=== PATIENT | female | born 1995 | race Caucasian/White ===

== ENCOUNTER 2017-09-28 15:32 | Emergency (ER) | payer BC ==
[~2017-09-28] VITALS: Ht 170.2 cm; Wt 62.3 kg
[2017-09-28] MEDS ORDERED: EFFEXOR 50M50 MG/TAB PO (16:26)
[2017-09-28] MEDS ORDERED: VYVANSE40 MG PO (16:26)
[2017-09-28 16:28] LABS: BASO % 0.2 % (0.0-2.0); GRAN % 94.4 % (42.2-75.2); HEMATOCRIT 39.5 % (35.0-45.0); HEMOGLOBIN 13.5 g/dl (12.0-15.0); LYMPH # 0.4 (1.2-3.4); LYMPH % 2.1 % (20.0-51.0); MEAN CELL VOLUME 91 fl (80.0-95.0); MEAN CORPUSCULAR HEMOGLOBIN 31 pg (26.0-32.0); MEAN CORPUSCULAR HGB CONC 34 g/dl (33.0-37.0); MEAN PLATELET VOLUME 10.3 fl (7.4-10.4); MONO # 0.6 (0.1-0.6); MONO % 2.8 % (1.7-9.3); PLATELET COUNT 155 K/mm3 (130-400); RED BLOOD COUNT 4.36 M/mm3 (4.10-5.30); REDCELL DISTRIBUTION WIDTH-CV 13.4 % (11.5-14.5)
[2017-09-28] MEDS ORDERED: VYVANSE20 MG PO (16:29)
[2017-09-28] MEDS ORDERED: birth control (16:29)
[2017-09-28 17:30] LABS: COLLECTION METHOD CLEAN CATCH
[2017-09-28 17:39] LABS: MUCOUS Present /lpf; PH 5 (5-8); SQUAMOUS EPITHELIAL 0-2 /hpf; URINE APPEARANCE Cloudy; URINE BACTERIA None Seen /hpf; URINE BILIRUBIN Negative (NEGATIVE); URINE BLOOD Negative (NEGATIVE); URINE COLOR Yellow; URINE GLUCOSE Negative (NEGATIVE); URINE KETONE Negative (NEGATIVE); URINE LEUKOCYTE ESTERASE Negative (NEGATIVE); URINE NITRATE Negative (NEGATIVE); URINE PROTEIN(semi-quant) 2+ (NEGATIVE); URINE UROBILINOGEN Negative (NEGATIVE)
[2017-09-28] MEDS ORDERED: BACTRIM DS 8001 TAB PO (18:54)
[2017-09-28 19:00] VITALS: TEMP 100.4
[2017-09-28] MEDS ORDERED: NORCO 325 MG-51 TAB PO (19:10)
[2017-09-28 19:21] VITALS: BP 100/57; PULSE 98
== END 2017-09-28 19:23 | disposition home or self-care (01) ==
LOC: COL.ER 15:32
PROVIDERS: Physician Assistant
DX: N61.0 Mastitis without abscess (principal); R07.9 Chest pain, unspecified; F90.9 Attention-deficit hyperactivity disorder, unspecified type; F17.210 Nicotine dependence, cigarettes, uncomplicated
CPT/HCPCS: J2270; J2405; J7030; J7050; Q9967

== ENCOUNTER → 2017-09-28 | Outpatient (CLI) | payer BC ==
[~2017-09-28] MED LIST: BACTRIM DS 8001 TAB PO; EFFEXOR 50M50 MG/TAB PO; NORCO 325 MG-51 TAB PO; VYVANSE20 MG PO; VYVANSE40 MG PO; birth control
[2017-09-28 12:46] LABS: HEMATOCRIT 37.4 % (35.0-45.0); HEMOGLOBIN 12.9 g/dl (12.0-15.0); MEAN CELL VOLUME 89 fl (80.0-95.0); MEAN CORPUSCULAR HEMOGLOBIN 31 pg (26.0-32.0); MEAN CORPUSCULAR HGB CONC 35 g/dl (33.0-37.0); MEAN PLATELET VOLUME 10.2 fl (7.4-10.4); PLATELET COUNT 157 K/mm3 (130-400); RED BLOOD COUNT 4.19 M/mm3 (4.10-5.30); REDCELL DISTRIBUTION WIDTH-CV 13.4 % (11.5-14.5)
[2017-09-28 13:00] LABS: CREATININE, serum 0.7 mg/dL (0.52-1.25); POTASSIUM 3.9 mmol/L (3.4-5.0)
[2017-09-28 13:01] LABS: BAND 39 % (0-10); LYMPHOCYTE 6 % (20.0-51.0); NEUTROPHILS 54 % (42.0-75.2); PLATELET ESTIMATE NORMAL (NORMAL)
[2017-09-28 13:03] LABS: TOXIC GRANULATION PRESENT
== END ==
LOC: COL.LAB 11:58
PROVIDERS: Family Medicine
DX: R06.00 Dyspnea, unspecified (principal)